=== PATIENT | female | born 1975 | race African-American/Black ===

== ENCOUNTER 2024-12-18 23:14 | Emergency (ER) | payer MEDICAID ==
[~2024-12-18] VITALS: Ht 165.1 cm; Wt 91.0 kg
[2024-12-18 23:16] VITALS: O2SAT 98
[2024-12-19 00:22] LABS: BASOPHILS % 0.5 % (0.0-2.0); EOSINOPHILS % 3.9 % (0.0-5.0); HEMATOCRIT. 41.7 % (36.0-48.0); HEMOGLOBIN. 14.1 g/dL (12.0-16.0); LYMPHOCYTES % 20.3 % (20.0-50.0); MEAN CORPUSCULAR HEMOGLOBIN 28.8 pg (28.0-32.0); MEAN CORPUSCULAR HGB CONC 33.7 g/dL (31.0-37.0); MEAN CORPUSCULAR VOLUME 85.4 fL (81.0-99.0); MEAN PLATELET VOLUME 8.9 fl (7.4-10.4); NEUTROPHILS % 68.3 % (40.0-76.0); PLATELET 334 x1000/uL (130-400); RED BLOOD CELL COUNT 4.89 mill/uL (4.2-5.4); RED CELL DISTRIBUTION WIDTH 13.5 % (11.6-14.6); WHITE BLOOD COUNT 6.4 x1000/uL (4.5-11.0)
[2024-12-19] MEDS: AMLODIPINE 5MG TABLET PO NR (00:24)
[2024-12-19 00:33] LABS: PARTIAL THROMBOPLASTIN TIME 29.2 sec (23.4-31.0); PROTHROMBIN TIME 10.4 sec (9.6-11.0)
[2024-12-19 00:34] LABS: CARBON DIOXIDE 27 mEq/L (21-32); CHLORIDE 103 mEq/L (98-107); POTASSIUM 3.8 mEq/L (3.5-5.1); SODIUM 138 mEq/L (136-145)
[2024-12-19 00:35] LABS: CALCIUM 9.5 mg/dL (8.7-10.4)
[2024-12-19 00:39] LABS: CREATININE 0.7 mg/dL (0.6-1.0)
[2024-12-19 00:40] LABS: ETHANOL BLOOD < 10 mg/dL (<10); GLUCOSE 130 mg/dL (70-105); UREA NITROGEN BLOOD 13 mg/dL (9-23)
[2024-12-19 00:41] LABS: *AMPHETAMINES SCREEN URINE NEGATIVE (NEGATIVE); *BARBITURATES SCREEN URINE NEGATIVE (NEGATIVE); *BENZODIAZEPINES SCREEN URINE NEGATIVE (NEGATIVE); *COCAINE SCREEN URINE NEGATIVE (NEGATIVE)
[2024-12-19 00:42] LABS: CANNABINOID URINE SCREEN NEGATIVE (NEGATIVE); ECSTASY MDMA SCREEN URINE NEGATIVE (NEGATIVE); METHADONE URINE SCREEN NEGATIVE (NEGATIVE); OPIATES URINE SCREEN NEGATIVE (NEGATIVE); PHENCYCLIDINE URINE SCREEN NEGATIVE (NEGATIVE)
[2024-12-19 00:44] LABS: THYROID STIMULATING HORMONE 1.69 uIU/mL (0.55-4.78)
[2024-12-19 00:49] LABS: TROPONIN I HIGH SENSITIVITY < 4 ng/L (3.0-34)
[2024-12-19 01:14] VITALS: BP 131/68; PULSE 69; RESP 20; TEMP 36.5; O2SAT 98
== END 2024-12-19 01:18 | disposition home or self-care (01) ==
LOC: ER 23:14
DX: I10 Essential (primary) hypertension (principal); E05.90 Thyrotoxicosis, unspecified without thyrotoxic crisis or storm; R07.9 Chest pain, unspecified; Z79.899 Other long term (current) drug therapy
CPT/HCPCS: 36415; 71045; 80048; 80305; 80320; 83880; 84439; 84443; 84484; 85025; 93005; 99285; G0480

== ENCOUNTER 2024-12-19 03:02 | Emergency (ER) | payer MEDICAID ==
[~2024-12-19] VITALS: Ht 160 cm; Wt 100.0 kg
[2024-12-19 03:12] VITALS: O2SAT 97
[2024-12-19 03:57] VITALS: BP 147/83; PULSE 59; RESP 15; TEMP 36.8; O2SAT 100
== END 2024-12-19 03:59 | disposition home or self-care (01) ==
LOC: ER 03:02
DX: I10 Essential (primary) hypertension (principal); Z86.39 Personal history of other endocrine, nutritional and metabolic disease
CPT/HCPCS: 99281